=== PATIENT | female | born 1990 | race Caucasian/White ===

== ENCOUNTER 2022-02-02 22:29 | Inpatient (IN) | payer BC ==
[~2022-02-02] VITALS: Ht 180.3 cm; Wt 111.8 kg
[~2022-02-02 22:29] MED LIST: NO HOME MEDICATIONS
[2022-02-02 23:16] VITALS: BP 164/91; PULSE 84; TEMP 97.4
[2022-02-02 23:53] LABS: HEMATOCRIT 36.3 % (37.0-47.0); HEMOGLOBIN 12.4 g/dl (12.5-16.0); MEAN CELL VOLUME 98 fl (80.0-100.0); MEAN CORPUSCULAR HEMOGLOBIN 34 pg (27-31); MEAN CORPUSCULAR HGB CONC 34 g/dl (33.0-37.0); MEAN PLATELET VOLUME 11.4 fl (7.4-10.4); PLATELET COUNT 119 K/mm3 (130-400); RED BLOOD COUNT 3.69 M/mm3 (4.10-5.30)
[2022-02-03] VITALS (9 sets, daily range): BP systolic 121–153; BP diastolic 62–74; PULSE 62–90; TEMP 97.6–97.8
[2022-02-03 00:08] LABS: ALBUMIN 2.9 gm/dL (3.5-5.0); BILIRUBIN,TOTAL 0.3 mg/dL (0.2-1.2); CALCIUM 9.5 mg/dL (8.4-10.2); CREATININE, serum 0.74 mg/dL (0.57-1.11); POTASSIUM 3.8 mmol/L (3.5-4.5); TOTAL PROTEIN 6.8 gm/dL (6.2-8.1)
[2022-02-03 00:09] LABS: BAND 1 % (0-10); LYMPHOCYTE 10 % (20.0-51.0); MYELOCYTE 1 % (0-0); NEUTROPHILS 82 % (42.0-75.2); PLATELET ESTIMATE DECREASED (NORMAL)
[2022-02-03 00:36] LABS: THYROID STIMULATING HORMONE 2.698 uIU/mL (0.350-4.940)
--- NOTE | 2022-02-03 00:41 | NUR ---
Contacted [facility] and spoke to Marlen. Referral #[id number]
--- NOTE | 2022-02-03 05:14 | NUR ---
Marlen from [facility] called back, states body can be released to home at this time.
--- NOTE | 2022-02-03 07:30 | NUR ---
2234 ON 02/02/22- PT ARRIVES TO UNIT AMBULATORY WITH SPOUSE WITH CONCERNS OF CONTRACTIONS SINCE APPROXIMATELY 1800 THIS EVENING AND DECREASED MOVEMENT. PT STATES LAST MOVEMENT WAS AT APPROXIMATELY 1600 TODAY BUT DIDN'T FEEL STRONG USUAL.PT ANXIOUS AND STATES SHE IS VERY WORRIED ABOUT BABY'S MOVEMENTS. PT CHANGED INTO GOWN. 2242 ON 02/02/22- THIS NURSE IN ROOM, ATTEMPTS TO TRACE FHTs UNSUCCESSFUL. FREDDY, RN IN ROOM TO ASSIST. PT INCREASINGLY ANXIOUS AND TEARFUL. 2252 ON 02/02/22- NOTIFIED OF PT ARRIVAL TO THE UNIT WITH PREVIOUSLY LISTED COMPLAINTS AND ABOUT INABILITY TO TRACE FHTs. DR. DING WILL COME IN TO EVALUATE 2256- STOPPED ATTEMPTS TO TRACE FHTs IT IS INCREASING PT'S ANXIETY. 2299- PT DENIES LOF AND VAGINAL BLEEDING. SVE OF 6-7/100/-2, INTACT, HEAD DOWN. 231- DR. DING IN ROOM TO PERFORM BEDSIDE US. NO CARDIAC ACTIVITY NOTED PER DR. DING. PARENTS INFORMED OF LOSS BY PHYSICIAN. THIS NURSE AND DR. DING REMAIN IN ROOM TO PROVIDE EMOTIONAL SUPPORT. 2316- TOCO DC'D PER DR. DING. PT WISHES TO BE UP, AMBULATING IN ROOM. PARENTS COPING APPROPRIATELY. 0000- SVE OF 9100/-1. PT DENIES URGE TO PUSH. CONTINUES TO AMBULATE IN ROOM, SPOUSE SUPPORTIVE. 0015- PT STATES URGE TO PUSH, DR. DING IN ROOM, SVE OF COMPLETE. PT ATTEMPTS TO GET IN BED FOR DELIVERY BUT STATES IT HURTS TOO MUCH TO LIE DOWN. OFFERED FOR PT TO DELIVERY IN HANDS AND KNEES, PT AGREES. ASSISTED INTO BED ON HANDS AND KNEES. BEGINS PUSHING WITH DR. DING AND THIS NURSE. 0028- SPONTANEOUS VAGINAL DELIVERY OF STILLBORN BABY GIRL. CORD CLAMPED AND CUT AND BABY ASSESS BY DR. DING. BABY SWADDLED AND GIVEN TO MOTHER. PERICARE PROVIDED, CLEAN PAD AND CHUX ON. PARENTS DENY QUESTIONS AT THIS TIME. 0033- SPONTANEOUS DELIVERY OF INTACT PLACENTA, PLACENTA AND BABY MEC STAINED. PITOCIN STARTED AT 333MLS/HR PER PROTOCOL. 0035- FUNDUS FIRM, MODERATE LOCHIA. RECOVERY STARTED. EMOTIONAL SUPPORT PROVIDED. PT DENIES NEED FOR PAIN MEDICATION. 0045- FAMILY ALLOWED TO BE IN ROOM WITH PARENTS AND BABY FOR SUPPORT. 0430- PARENTS OPT FOR [facility] IN [place], [place] TO TOOLSMITH BABY. HOME CONTACTED BY THIS NURSE AND WILL BE TO HOSPITAL AT APPROXIMATELY 0600. FOB ALSO SPEAKS TO DELORIS WITH [facility] CONCERNING SPECIAL REQUESTS FOR BABY. 0640- DELORIS WITH [facility] IN ROOM TO TOOLSMITH BABY. DISCUSSES ARRANGEMENTS, QUESTIONS ENCOURAGED AND ANSWERED BY DELORIS. 0655- DELORIS WITH [facility] ESCORTED OFF UNIT BY THIS NURSE WITH BABY. PARENTS COPING APPROPRIATELY. 0710- PARENTS WISH TO BE DISCHARGED AT THIS TIME. MAY DC HOME PER DR. DING. DISCHARGE INSTRUCTIONS REVIEWED, QUESTIONS ENCOURAGED AND ANSWERED. PT VERBALIZES UNDERSTANDING. 0730- PARENTS ESCORTED FROM UNIT AMBULATORY BY THIS NURSE.
[2022-02-08 07:58] LABS: TOXOPLASMA AB, IGG <3.0 IU/mL (0.0-7.1); TOXOPLASMA AB, IGM <3.0 AU/mL (0.0-7.9); TOXOPLASMA IGG VALUE Negative (Negative); TOXOPLASMA IGM VALUE Negative (Negative)
== END 2022-02-03 07:30 | disposition home or self-care (01) | DRG 806 ==
LOC: LDRO 22:29 → LDR 23:29
PROVIDERS: ADMIT Obstetrics & Gynecology
PROC: 10E0XZZ Delivery of Products of Conception, External Approach (ICD-10-PCS; principal; 2022-02-02)
DX: O48.0 Post-term pregnancy (principal); O99.12 Other diseases of the blood and blood-forming organs and certain disorders involving the immune mechanism complicating childbirth; Z37.1 Single stillbirth; O99.354 Diseases of the nervous system complicating childbirth; O98.52 Other viral diseases complicating childbirth; G43.909 Migraine, unspecified, not intractable, without status migrainosus; D69.6 Thrombocytopenia, unspecified; O77.0 Labor and delivery complicated by meconium in amniotic fluid; O13.4 Gestational [pregnancy-induced] hypertension without significant proteinuria, complicating childbirth; R05.9 Cough, unspecified; U09.9 Post COVID-19 condition, unspecified; Z3A.40 40 weeks gestation of pregnancy
CPT/HCPCS: J2590; J2791; J7120